=== PATIENT | female | born 1985 | race American Indian/Alaskan Native ===

== ENCOUNTER 2017-04-01 09:56 | Outpatient (CLI) | payer OTHER ==
--- NOTE | 2017-04-02 15:24 | Vascular Lab Report ---
Right Lower Extremity Venous Duplex Study: Reason for Exam: Pain of the right lower extremity. Comments on the Right: All veins visualized are freely compressible without evidence of internal echogenicity. Flow is spontaneous and phasic throughout. No evidence of acute or chronic thrombus is seen in any of the vessels visualized. Comments on the Left: A limited duplex study was done of the proximal veins of the left lower extremity. All veins visualized are freely compressible without evidence of internal echogenicity. Flow is spontaneous and phasic throughout. No evidence of acute or chronic thrombus is seen in any of the vessels visualized. Impression: No evidence of acute or chronic deep venous thrombosis in the right lower extremity.
== END 2017-04-01 09:57 | disposition home or self-care (01) ==
LOC: VAS 09:56
PROVIDERS: ATTEND Specialist
DX: I82.401 Acute embolism and thrombosis of unspecified deep veins of right lower extremity (principal)

== ENCOUNTER 2017-08-10 10:47 | Emergency (ER) | payer OTHER ==
[2017-08-10 11:34] LABS: Basophils % (Auto) 0.3 % (0.0-1.8); Eosinophils % (Auto) 0.7 % (0.0-4.3); Hematocrit 40.1 % (30.3-42.9); Hemoglobin 13.9 gm/dl (10.1-14.3); Mean Corpuscular HGB Conc 35 % (30-34); Mean Corpuscular Hemoglobin 27 pg (28-32); Mean Corpuscular Volume 78 fl (79-97); Platelet Count 298 K/mm3 (140-440); Red Blood Count 5.12 M/mm3 (3.65-5.03); Red Cell Distribution Width 16.2 % (13.2-15.2); White Blood Count 9.9 K/mm3 (4.5-11.0)
[2017-08-10 11:49] LABS: Anion Gap 18 mmol/L; BUN/Creatinine Ratio 11; Blood Urea Nitrogen 8 mg/dL (7-17); Calcium 9.6 mg/dL (8.4-10.2); Carbon Dioxide 24 mmol/L (22-30); Chloride 102.9 mmol/L (98-107); Glucose 91 mg/dL (65-100); Potassium 4.3 mmol/L (3.6-5.0); Sodium 141 mmol/L (137-145)
--- NOTE | 2017-08-10 12:04 | XRay Report ---
ROUTINE CHEST, TWO VIEWS: HISTORY: Shortness of breath. The trachea, heart, mediastinal contour, lung garcia and bony thorax are unremarkable. IMPRESSION: Unremarkable chest x-ray.
--- NOTE | 2017-08-10 16:49 | Emergency Department Report ---
ED General Adult HPI - General Chief complaint: Dyspnea/Respdistress Stated complaint: TROUBLE BREATHING, KIDNEY PAIN, SHOULDER PAIN Time Seen by Provider: 08/10/17 16:30 Source: patient Mode of arrival: Ambulatory Limitations: No Limitations - History of Present Illness Initial comments: Patient complains of multiple symptoms that are appreciated probably chronic i.e. 4 months. She states that she is having a left "big toe attack". She complains pain in the right side of her chest lower back the right arm. Sometimes she feels weak but she has never had a syncopal episode. Apparently she does not have a primary care provider and has not seen a doctor for these complaints. I do not have the impression that any of her complaints are new in nature. Sometimes she feels short of breath but not at the current moment her pulse oximetry is 100% her breathing is completely unlabored. -: month(s) Location: chest, back, left Radiation: non-radiation Severity scale (0 -10): 6 Quality: aching Consistency: intermittent Improves with: none Worsens with: none Associated Symptoms: denies other symptoms Treatments Prior to Arrival: none - Related Data Previous Rx's Medication Instructions Recorded Last Taken Type Nitrofurantoin Monohyd/M-Cryst 100 mg PO BID #10 capsule 08/10/17 Unknown Rx [Macrobid 100 mg Capsule] traMADol [Ultram] 50 mg PO Q6HR PRN #14 tablet 08/10/17 Unknown Rx Allergies Allergy/AdvReac Type Severity Reaction Status Date / Time No Known Allergies Allergy Unverified 04/01/17 09:57 ED Review of Systems ROS: Stated complaint: TROUBLE BREATHING, KIDNEY PAIN, SHOULDER PAIN Other details as noted in HPI ED Past Medical Hx - Past Medical History Previous Medical History?: No - Surgical History Past Surgical History?: Yes Additional Surgical History: fibroid - Social History Smoking Status: Never Smoker Substance Use Type: None - Medications Home Medications: Home Medications Medication Instructions Recorded Confirmed Last Taken Type Nitrofurantoin Monohyd/M-Cryst 100 mg PO BID #10 capsule 08/10/17 Unknown Rx [Macrobid 100 mg Capsule] traMADol [Ultram] 50 mg PO Q6HR PRN #14 tablet 08/10/17 Unknown Rx ED Physical Exam - General Limitations: No Limitations ED Course Vital Signs 08/10/17 08/10/17 11:05 15:36 Temperature 98.6 F Pulse Rate 80 Respiratory 16 18 Rate Blood Pressure 137/89 O2 Sat by Pulse 100 98 Oximetry ED Medical Decision Making - Lab Data Result diagrams: 08/10/17 11:14 08/10/17 11:11 Laboratory Results - last 24 hr 08/10/17 08/10/17 08/10/17 11:11 11:14 16:47 WBC 9.9 RBC 5.12 H Hgb 13.9 Hct 40.1 MCV 78 L MCH 27 L MCHC 35 H RDW 16.2 H Plt Count 298 Lymph % (Auto) 34.0 [place] % (Auto) 6.9 Eos % (Auto) 0.7 Baso % (Auto) 0.3 Lymph # 3.4 [place] # 0.7 Eos # 0.1 Baso # 0.0 Seg Neutrophils % 58.1 Seg Neutrophils # 5.7 Sodium 141 Potassium 4.3 Carbon Dioxide 24 BUN 8 Creatinine 0.7 Estimated GFR > 60 BUN/Creatinine Ratio 11 Glucose 91 Calcium 9.6 Troponin T < 0.010 Urine Bilirubin Neg Urine RBC (Auto) 1.0 U Epithel Cells (Auto) 4.0 CL 102.9 WBC 6.0 RBC 1.1 Nitrite neg Bacteria 4+ Laboratory Results - last 24 hr 08/10/17 08/10/17 08/10/17 11:11 11:14 16:47 WBC 9.9 RBC 5.12 H Hgb 13.9 Hct 40.1 MCV 78 L MCH 27 L MCHC 35 H RDW 16.2 H Plt Count 298 Lymph % (Auto) 34.0 [place] % (Auto) 6.9 Eos % (Auto) 0.7 Baso % (Auto) 0.3 Lymph # 3.4 [place] # 0.7 Eos # 0.1 Baso # 0.0 Seg Neutrophils % 58.1 Seg Neutrophils # 5.7 Sodium 141 Potassium 4.3 Carbon Dioxide 24 BUN 8 Creatinine 0.7 Estimated GFR > 60 BUN/Creatinine Ratio 11 Glucose 91 Calcium 9.6 Troponin T < 0.010 Urine Bilirubin Neg Urine RBC (Auto) 1.0 U Epithel Cells (Auto) 4.0 - EKG Data -: EKG Interpreted by Me EKG shows normal: sinus rhythm, axis, intervals, QRS complexes, ST-T waves Rate: normal - EKG Data Interpretation: normal EKG Critical care attestation.: If time is entered above; I have spent that time in minutes in the direct care of this critically ill patient, excluding procedure time. ED Disposition Clinical Impression: Allodynia UTI (urinary tract infection) Qualifiers: Urinary tract infection type: site unspecified Hematuria presence: without hematuria Qualified Code(s): N39.0 - Urinary tract infection, site not specified Disposition: TO HOME OR SELFCARE Is pt being admited?: No Does the pt Need Aspirin: No Condition: Stable Instructions: Urinary Tract Infection in Women (ED), Chronic Pain (ED) Additional Instructions: Follow-up with a primary care physician or the [facility]. Prescription given for urinary tract infection and something for pain. Return any acute change or problems. Prescriptions: Nitrofurantoin Monohyd/M-Cryst [Macrobid 100 mg Capsule] 100 mg PO BID #10 capsule traMADol [Ultram] 50 mg PO Q6HR PRN #14 tablet PRN Reason: Pain Referrals: PRIMARY CARE, [Primary Care Provider] - 3-5 Days Time of Disposition: 17:54
[2017-08-10 17:20] LABS: Bacteria,Urine 4+ /HPF (Negative); Bilirubin,Urine NEG (Negative); Blood,Urine SM (Negative); Ketones,Urine NEG (Negative); Leukocyte Esterase,Urine TR (Negative); Mucus,Urine FEW /HPF; Nitrite,Urine NEG (Negative); Protein,Urine <15 mg/dL mg/dL (Negative); Urobilinogen,Urine < 2.0 mg/dL (<2.0)
[2017-08-10] MEDS ORDERED: ULTRAM PO ONE (18:00)
[2017-08-10 18:17] VITALS: BP 112/76
== END 2017-08-10 18:17 | disposition home or self-care (01) ==
LOC: ED 10:47
DX: N39.0 Urinary tract infection, site not specified (principal); R20.8 Other disturbances of skin sensation
CPT/HCPCS: 36415; 71020; 80048; 81001; 81025; 84484; 85025; 93005; 93010